=== PATIENT | female | born 1940 | race Caucasian/White ===

== ENCOUNTER → 2016-07-01 08:41 | Outpatient (CLI) | payer MEDICARE, OTHER ==
--- NOTE | 2016-07-01 15:03 | NUR ---
Nutrition education for DMT2: Pt states she has lost 35# and her A1c is now 5.7% - down from 6.3% iin July of last year. Pt reports she is erratic with her mealtimes and does tend to overeat due to stress. Pt is on a walker so it is very hard for her to get any exercise. She has been trying to not eat any white foods. Pt states she wants me to give her recipes to use when cooking. Pt also states she cannot stand for long peroids of time to cook. Reviewed CHO containing foods and the affect CHO have on glucose. Stressed the importance of eating meals at consistent CHO. Reviewed sample menus with emphasis on CHO foods. Reviewed portion sizes of common CHO. Advised pt to closely monitor portion size of foods and she could eat white foods if she wants. REviewed with pt some recipes; however, I do not have recipes to give to pts. Reviewed glucose numbers and advised pt to check glucose at least 2 times a day and differ the times checked. Pt with good understanding of information provided. Provided pt with printed diet information and RDN name and phone number. RDN will be available if needed. Thank you for the consult.
== END | disposition home or self-care (01) ==
LOC: D.FANS 08:41
DX: E11.9 Type 2 diabetes mellitus without complications (principal)